=== PATIENT | female | born 2000 | race Caucasian/White ===

== ENCOUNTER 2024-08-15 14:39 | Inpatient (IN) | payer MEDICAID ==
[2024-08-15] MEDS ORDERED: haloperidoL 5 MG TABLET PO PRN (16:15)
[2024-08-15] MEDS ORDERED: HYDROX5L PO (20:38)
[2024-08-15] MEDS ORDERED: OLAN5TAB5 PO (20:38)
[2024-08-15] MEDS: HALOPERIDOL LACTATE 5 MG/ML VIAL IM ONE (20:54)
[2024-08-15] MEDS: LORazepam 2 MG/ML VIAL IM ONE (20:54)
[2024-08-15] MEDS: DiphenhydrAMINE HCL 50 MG/ML VIAL IM ONE (20:54)
[2024-08-15 22:43] VITALS: BP 126/68; PULSE 78; RESP 17; TEMP 97.5; O2SAT 97
[2024-08-16] MEDS ORDERED: BENZOCAINE/MENTHOL [CEPACOL] LOZENGE PO PRN (06:45)
[2024-08-16] MEDS ORDERED: MAGNESIUM HYDROXIDE SUSPENSION 30 ML UDCUP PO PRN (06:45)
[2024-08-16] MEDS ORDERED: CloNIDine HCL 0.1 MG TABLET PO PRN (06:45)
[2024-08-16] MEDS ORDERED: ACETAMINOPHEN 325 MG TABLET PO PRN (06:45)
[2024-08-16] MEDS ORDERED: BACITRACIN 28 GM OINTMENT TP PRN (06:45)
[2024-08-16] MEDS ORDERED: ALBUTEROL SULFATE HFA 90 MCG/PUFF 8 GM INHALER IH PRN (06:45)
[2024-08-16] MEDS ORDERED: OMEPRAZOLE 20 MG CAPSULE PO PRN (06:45)
[2024-08-16] MEDS ORDERED: ONDANSETRON 4 MG TABLET PO PRN (06:45)
[2024-08-16] MEDS ORDERED: LOPERAMIDE HCL 2 MG CAPSULE PO PRN (06:45)
[2024-08-16] MEDS ORDERED: DOCUSATE SODIUM 100 MG CAPSULE PO PRN (06:45)
[2024-08-16] MEDS ORDERED: PETROLATUM,WHITE 28 GM JELLY TP PRN (06:45)
[2024-08-16] MEDS ORDERED: MAG HYDROX/ALUMINUM HYD/SIMETH ES 30 ML SUSPENSION UDCUP PO PRN (06:45)
[2024-08-16] MEDS: DIVALPROEX SODIUM 500 MG DR TABLET PO SCH (16:37)
[2024-08-16 20:12] VITALS: BP 120/77; PULSE 83; RESP 17; TEMP 97.7; O2SAT 97
[2024-08-17 08:45] VITALS: BP 108/60; PULSE 75; RESP 18; TEMP 97.8; O2SAT 97
[2024-08-17 10:09] LABS: APPEARANCE,URINE TURBID (CLEAR); BILIRUBIN,URINE NEGATIVE (NEGATIVE); COLOR,URINE ORANGE (YELLOW); GLUCOSE, URINE (UA) NEGATIVE (NEGATIVE); KETONES,URINE NEGATIVE (NEGATIVE); LEUKOCYTE ESTERASE ,URINE LARGE (NEGATIVE); NITRATE,URINE NEGATIVE (NEGATIVE); OCCULT BLOOD,URINE NEGATIVE (NEGATIVE); PH,URINE 6.5 (5.0-8.0); PH,URINE DRUG SCREEN 6.5 (5.0-8.0); PROTEIN,URINE TRACE mg/dL (NEGATIVE); SPECIFIC GRAVITIY, URINE 1.027 (1.003-1.030); UROBILINOGEN,URINE <=1.0 mg/dL (<=1.0)
[2024-08-17 10:18] LABS: ALCOHOL, URINE DRUG SCREEN NEGATIVE (NEGATIVE); AMPHET/METH SCREEN,URINE NEGATIVE (NEGATIVE); BARBITURATE SCREEN, URINE NEGATIVE (NEGATIVE); BENZODIAZEPINES SCREEN,URINE NEGATIVE (NEGATIVE); CANNABINOID SCREEN,URINE NEGATIVE (NEGATIVE); COCAINE SCREEN,URINE NEGATIVE (NEGATIVE); METHADONE SCREEN, URINE NEGATIVE (NEGATIVE); OPIATE SCREEN,URINE NEGATIVE (NEGATIVE); PHENCYCLIDINE SCREEN,URINE NEGATIVE (NEGATIVE)
[2024-08-17 10:46] LABS: RBC,URINE None Seen /HPF (0-2); WBC,URINE 0-2 /HPF (0-5)
[2024-08-17 10:47] LABS: AMORPHOUS SEDIMENT,UR Moderate /LPF (None Seen); BACTERIA,URINE Few /HPF (None Seen); CALCIUM OXALATE CRYSTALS,UR Few /LPF (None Seen); SQUAMOUS EPITHELIAL CELL,UR Few /LPF (None Seen)
[2024-08-17 20:17] VITALS: BP 119/73; PULSE 90; RESP 16; TEMP 97.7; O2SAT 97
[2024-08-18 08:12] VITALS: BP 109/64; PULSE 73; RESP 17; TEMP 97.5; O2SAT 97
[2024-08-18 08:35] LABS: BASOPHILS % (AUTO) 0.7 % (0.0-2.0); EOSINOPHILS % (AUTO) 3.8 % (1.0-6.0); HEMATOCRIT 41.5 % (36-46); HEMOGLOBIN 14.2 g/dL (12.0-16.0); LYMPHOCYTES # (AUTO) 3.2 K/uL (1.0-4.8); LYMPHOCYTES % (AUTO) 40.9 % (22.0-44.0); MEAN CORPUSCULAR HEMOGLOBIN 31.1 pg (26.0-34.0); MEAN CORPUSCULAR HGB CONC 34.2 G/dL (31.0-37.0); MEAN CORPUSCULAR VOLUME 91 fL (80-100); MONOCYTES # (AUTO) 0.3 K/uL (0.1-1.0); NEUTROPHILS % (AUTO) 50.6 % (40.0-70.0); PLATELET COUNT (AUTO) 311 K/uL (150-450); RED BLOOD CELL COUNT(AUTO) 4.57 MIL/uL (4.00-5.20); RED CELL DISTRIBUTION WIDTH 12.9 % (11.5-14.5); WHITE BLOOD COUNT (AUTO) 7.8 K/uL (4.5-11.0)
[2024-08-18 09:05] LABS: ALANINE AMINOTRANSFERASE 25 U/L (12-78); ALBUMIN 3.4 g/dL (3.4-5.0); ALKALINE PHOSPHATASE 72 U/L (46-116); ANION GAP 9 mmol/L (8-16); ASPARTATE AMINOTRANSFERASE 11 U/L (15-37); BILIRUBIN,TOTAL 0.3 mg/dL (0.1-1.0); CALCIUM, TOTAL 8.9 mg/dL (8.8-10.5); CARBON DIOXIDE 30 mmol/L (22-29); CHLORIDE 105 mmol/L (98-107); CHOLESTEROL 144 mg/dL (131-200); CREATININE 0.82 mg/dL (0.60-1.30); GLOMERULAR FILTR. RATE CALC > 60 mL/min (>60); GLUCOSE,RANDOM 104 mg/dL (70-110); HDL CHOLESTEROL 36 mg/dL (40-60); LDL CHOL (CALC.) 97 mg/dL (0-130); POTASSIUM 3.9 mmol/L (3.5-5.1); SODIUM SERUM 144 mmol/L (136-145); TOTAL PROTEIN, SERUM 7.4 g/dL (6.4-8.2); TRIGLYCERIDES 53 mg/dL (15-150); UREA NITROGEN, BLOOD 11 mg/dL (7-18)
[2024-08-18 19:07] VITALS: RESP 16
[2024-08-18] MEDS: IBUPROFEN 600 MG TABLET PO PRN (19:07)
[2024-08-18 20:07] VITALS: RESP 16
[2024-08-18] MEDS: ZOLPIDEM TARTRATE 10 MG TABLET PO PRN (22:23)
[2024-08-19] MEDS: LORazepam 2 MG TABLET PO PRN (01:08)
[2024-08-19 08:52] VITALS: BP 104/60; PULSE 69; RESP 18; TEMP 97.3
[2024-08-19 21:02] VITALS: RESP 18
[2024-08-20 08:29] VITALS: RESP 18
[2024-08-20 21:33] VITALS: BP 134/93; PULSE 90; RESP 16; TEMP 98.2
[2024-08-21 10:31] VITALS: RESP 17
[2024-08-21 20:20] VITALS: BP 93/48; PULSE 67; RESP 17; TEMP 98.4
[2024-08-22] MEDS: FLUOCINONIDE 0.05% 15 GM CREAM TP SCH (08:35)
[2024-08-22 08:46] VITALS: BP 107/60; PULSE 61; RESP 17; TEMP 97.5; O2SAT 98
== END 2024-08-22 15:40 | disposition home or self-care (01) | DRG 750 ==
LOC: B3A 19:11
PROVIDERS: ADMIT Psychiatry & Neurology Psychiatry; ATTEND Psychiatry & Neurology Psychiatry
PROC: GZ52ZZZ Individual Psychotherapy, Cognitive (ICD-10-PCS; principal; 2024-08-21)
DX: F20.9 Schizophrenia, unspecified (principal); F19.10 Other psychoactive substance abuse, uncomplicated; F41.9 Anxiety disorder, unspecified; G47.00 Insomnia, unspecified; Z59.00 Homelessness unspecified
CPT/HCPCS: 80053; 80061; 80307; 81001; 83036; 84703; 85025; J1200; J1630; J2060